=== PATIENT | male | born 1950 | race Caucasian/White ===

== ENCOUNTER 2017-07-12 08:57 | Day surgery (SDC) | payer OTHER, BC ==
[2017-07-07 14:15] VITALS: BMI 28.2
[2017-07-12] MEDS ORDERED: PROPOFOL 20 ML ONE ×2 (09:38)
[2017-07-12 11:19] VITALS: TEMP 98
[2017-07-12 11:31] VITALS: BP 110/70; PULSE 74
--- NOTE | 2017-07-13 16:02 | PATH ---
Surgical Pathology Report Patient Name: [facility]. Rec. #: [id number] /Age/Gender: 1950 (Age: 67) / M Account: [id number] Location: Taken: 07/12/2017 Received: 07/12/2017 Reported: 07/13/2017 Physicians: Cyril Lee M.D. Specimen(s) Received A: DUODENUM B: ANTRUM Clinical History Preoperative diagnosis: GERD, history of polyps Postoperative diagnosis: Rule out celiac disease, rule out H. Pylori, gastritis Final Diagnosis A. DUODENUM, BIOPSY: DUODENAL MUCOSA WITH NO PATHOLOGIC FINDINGS. Note: Features suggestive of celiac disease are not identified in this biopsy. B. ANTRUM, BIOPSY: MILD CHRONIC GASTRITIS. IMMUNOSTAIN IS NEGATIVE FOR H. PYLORI ORGANISMS. Electronically Signed Briana Whelan M.D. Gross Description A. Received in formalin, labeled "duodenum" are 2 brownlee, irregular portions of soft tissue measuring 0.3 and 0.5 cm. in greatest dimension. The specimens are submitted in toto in one cassette. B. Received in formalin, labeled "antrum" are 2 brownlee, irregular portions of soft tissue measuring 0.3 and 0.4 cm. in greatest dimension. The specimens are submitted in toto in one cassette. 07/12/201707/12/2017
== END 2017-07-12 11:35 | disposition home or self-care (01) ==
LOC: FASU-ENDO 08:57
PROVIDERS: ATTEND Internal Medicine Gastroenterology
PROC: 0DB68ZX Excision of Stomach, Via Natural or Artificial Opening Endoscopic, Diagnostic (ICD-10-PCS; 2017-07-12)
PROC: 0DJD8ZZ Inspection of Lower Intestinal Tract, Via Natural or Artificial Opening Endoscopic (ICD-10-PCS; principal; 2017-07-12 10:30)
PROC: 0DB98ZX Excision of Duodenum, Via Natural or Artificial Opening Endoscopic, Diagnostic (ICD-10-PCS; 2017-07-12 10:30)
DX: Z86.010 Personal history of colon polyps (principal); K57.30 Diverticulosis of large intestine without perforation or abscess without bleeding; K29.50 Unspecified chronic gastritis without bleeding; R12 Heartburn
CPT/HCPCS: 43239; G0105; 88305-TC; 88342-TC